=== PATIENT | female | born 1975 | race African-American/Black ===

== ENCOUNTER 2018-06-29 20:42 | Emergency (ER) | payer SELFPAY ==
[~2018-06-29] VITALS: Ht 162.6 cm; Wt 135.2 kg
--- NOTE | 2018-06-29 21:45 | Diagnostic Imaging Report ---
EXAMINATION: PA and lateral views of the chest. COMPARISON: None CLINICAL HISTORY: Cough, congestion DISCUSSION: Lines/tubes: None. Lungs: Right middle/lower lung opacity may reflect early pneumonia. Pleura: There is no pleural effusion or pneumothorax. Heart and mediastinum: The cardiomediastinal silhouette is normal. Bones and soft tissues: No acute bony abnormalities. IMPRESSION: Right middle/lower lung opacity may reflect bronchopneumonia. Signed by: Dr. Rickie Chowdhury M.D. on 06/29/2018 9:41 PM
[2018-06-29 22:05] VITALS: BP 147/80
== END 2018-06-29 22:11 | disposition home or self-care (01) ==
LOC: FSED 20:42
DX: R05 Cough (principal); J15.9 Unspecified bacterial pneumonia; H66.91 Otitis media, unspecified, right ear; N76.0 Acute vaginitis
CPT/HCPCS: 71046; 99283

== ENCOUNTER 2018-09-26 20:41 | Emergency (ER) | payer SELFPAY ==
[~2018-09-26] VITALS: Ht 175.3 cm; Wt 135.2 kg
--- OUTSIDE RECORDS SUMMARY | 2018-09-26 20:44 | XMS REPORT ---
Author [facility] Address Unknown Phone Unavailable Care Team Providers Care [employer] Name Role Phone Dereck REESE Unavailable Unavailable Problems This patient has no known problems. Allergies, Adverse Reactions, Alerts This patient has no known allergies or adverse reactions. Medications This patient has no known medications. Results Test Description Test Time Test Comments Text Results Atomic Results Result Comments CXR 2 VIEW - [facility] 2018-06-29 21:40:00 [place] [address] Patient Name: ROSANNA RO MR #: [id number] : 1975 Age/Sex: 42/F Req #: [id number] Adm Physician: Ordered by: JEET REESE MD Report #: [id number] Location: [facility] Room/Bed: Procedure: [id number] HOPD/CXR 2 VIEW - [facility] Exam Date: 06/29/18 Exam Time: 2134 REPORT STATUS: Signed EXAMINATION: PA and lateral views of the chest. COMPARISON: None CLINICAL HISTORY: Cough, congestion DISCUSSION: Lines/tubes: None. Lungs: Right middle/lower lung opacity may reflect early pneumonia. Pleura: There is no pleural effusion or pneumothorax. Heart and mediastinum: The cardiomediastinal silhouette is normal. Bones and soft tissues: No acute bony abnormalities. IMPRESSION: Right middle/lower lung opacity may reflect bronchopneumonia. Signed by: Dr. Shaan Torres M.D. on 06/29/2018 9:41 PM Dictated By: SHAAN TORRES MD 40 Transcribed By: MALINDA on 06/29/182140 COPY TO: JEET REESE MD
[2018-09-26] MEDS ORDERED: KETOROLAC TROMETHAMINE 60 MG/2 ML VIAL ONE (21:05)
[2018-09-26] MEDS ORDERED: KETOROLAC TROMETHAMINE 60 MG/2 ML VIAL IM ONE (21:15)
== END 2018-09-26 21:31 | disposition home or self-care (01) ==
LOC: FSED 20:41
DX: M54.42 Lumbago with sciatica, left side (principal); X50.0XXA Overexertion from strenuous movement or load, initial encounter; Y99.0 Civilian activity done for income or pay
CPT/HCPCS: 96372; 99282; J1885